=== PATIENT | male | born 1980 | race Two or more races ===

== ENCOUNTER 2018-09-29 22:40 | Emergency (ER) | payer BC ==
[~2018-09-29] VITALS: Ht 170.2 cm; Wt 77.1 kg
--- NOTE | 2018-09-29 23:01 | NUR ---
ED Nurse Note: Patient walked in to ER from home c/o N/V, severe headache since yesterday. Stated that had high fever at home. Patient can not eat. AO4. NAD. VSS
--- NOTE | 2018-09-29 23:05 | NUR ---
ED Nurse Note: IV ACCESS ESTABLISHED. BLOOD AND URINE COLLECTED; SENT DOWN TO LAB.
[2018-09-29 23:19] VITALS: BP 138/86
[2018-09-29 23:20] LABS: BASOPHILS % (AUTO) 0.7 % (0.0-2.0); BILIRUBIN, URINE NEGATIVE (NEGATIVE); EOSINOPHILS % (AUTO) 0.9 % (0.0-3.0); GLUCOSE, URINE (UA) NEGATIVE (NEGATIVE); HEMATOCRIT 51.8 % (42.0-52.0); KETONES,URINE 3+ (NEGATIVE); LEUKOCYTE ESTERASE ,URINE 2+ (NEGATIVE); LYMPHOCYTES % (AUTO) 10.1 % (20.0-45.0); MEAN CORPUSCULAR VOLUME 87 FL (80-99); MONOCYTES % (AUTO) 7.1 % (1.0-10.0); NEUTROPHILS % (AUTO) 81.2 % (45.0-75.0); NITRITE,URINE NEGATIVE (NEGATIVE); PH,URINE 6 (4.5-8.0); PLATELET COUNT 191 K/UL (150-450); PROTEIN,URINE 2+ (NEGATIVE); RED BLOOD COUNT 5.98 M/UL (4.70-6.10); RED CELL DISTRIBUTION WIDTH 10.6 % (11.6-14.8); UROBILINOGEN,URINE 4 MG/DL (0.0-1.0); WHITE BLOOD COUNT 17.8 K/UL (4.8-10.8)
[2018-09-29 23:22] LABS: HEMOGLOBIN 18.6 G/DL (14.2-18.0)
[2018-09-29 23:24] LABS: COLOR,URINE YELLOW
[2018-09-29 23:30] LABS: APPEARANCE,URINE SLIGHTLY CLOUDY
[2018-09-29 23:31] LABS: ANION GAP 12 mmol/L (5-15); BLOOD UREA NITROGEN 17 mg/dL (7-18); CALCIUM 9.6 MG/DL (8.5-10.1); CARBON DIOXIDE 24 MMOL/L (21-32); CHLORIDE 100 MMOL/L (98-107); POTASSIUM 3.5 MMOL/L (3.5-5.1); SODIUM 136 MMOL/L (136-145)
[2018-09-29 23:42] LABS: ALANINE AMINOTRANSFERASE 46 U/L (12-78); ALBUMIN 4.3 G/DL (3.4-5.0); ALKALINE PHOSPHATASE 59 U/L (46-116); ASPARTATE AMINO TRANSFERASE 18 U/L (15-37)
[2018-09-30] MEDS ORDERED: LORazepam Inj 2mg/ml 1ml IV ONE
[2018-09-30] MEDS ORDERED: cefTRIAXone 1 GM in NS 55 ML IVPB ONE (00:15)
[2018-09-30] MEDS ORDERED: CEPHALEXIN500 MG ORAL (00:55)
[2018-09-30 01:14] VITALS: BP 138/86
--- NOTE | 2018-09-30 01:15 | NUR ---
ER DISCHARGE NOTE: Patient is cleared to be discharged per ERMD, pt is aox4, on room air, with stable vital signs. pt was given dc and prescription instructions, pt was able to verbalize understanding, pt id band and iv site removed without complications. pt is able to ambulate with steady gait. pt took all belongings.
--- NOTE | 2018-09-30 01:37 | Emergency Room Report ---
History of Present Illness General Chief Complaint: Nausea, Vomiting, and Diarrhea Source: Patient Present Illness HPI Patient is a 37-year-old male presented after increased fever and chills. Patient reports having increased nausea and vomiting. He states he had been well earlier in the day. He denies any recent chemical exposures. 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 He reports having some prior history of prostate disease. He reports being a intermittent smoker. He denies any chest discomfort or shortness of breath. Allergies: Coded Allergies: No Known Allergies (Unverified , 09/29/18) Patient History Past Medical History: see triage record Reviewed Nursing Documentation: PMH: Agreed; PSxH: Agreed Nursing Documentation-PMH Past Medical History: No Stated History Review of Systems All Other Systems: negative except mentioned in HPI Physical Exam Vital Signs Date Time Temp Pulse Resp B/P (MAP) Pulse Ox O2 Delivery O2 Flow Rate FiO2 09/29/18 22:54 99.5 96 18 147/91 (109) 96 Room Air Sp02 EP Interpretation: reviewed, normal General Appearance: normal inspection, well appearing, no apparent distress, alert, GCS 15 Head: atraumatic ENT: normal ENT inspection, hearing grossly normal, normal voice Neck: normal inspection, full range of motion, supple, no bony tend Respiratory: normal inspection, lungs clear, normal breath sounds, no respiratory distress, no retraction, no wheezing Cardiovascular #1: no edema, tachycardia Gastrointestinal: normal inspection, normal bowel sounds, non tender, soft, no guarding, no hernia Genitourinary: no CVA tenderness Musculoskeletal: normal inspection, back normal, normal range of motion Neurologic: normal inspection, alert, oriented x3, responsive, oyster grader III-XII nml as tested, speech normal Psychiatric: normal inspection, judgement/insight normal, mood/affect normal Medical Decision Making Diagnostic Impression: Primary Impression: Dehydration Additional Impression: Urinary tract infection ER Course Presented for increased fever and chills. Differential diagnosis include was not limited to urinary tract infection, pneumonia, substance abuse among others. Because of complexity of patient's case laboratory testing and imaging studies were ordered. Patient was noted to be somewhat sweaty no acute distress. He does not appear to have any respiratory difficulty. Laboratory studies were ordered due to patient's concerning history. Patient was started on IV fluids. He was given IV antibiotics after urinalysis showed some evidence of urinary infection. Urine drug screen was also noted to be positive for cocaine as well as marijuana. EKG interpreted by me showed normal sinus rhythm with a rate of [address] or T wave changes. Patient was given IV fluids and stated that he felt much better. Patient appeared to be stable for discharge. He was given prescription for oral antibiotics. He is advised to return if worse. Labs Test 09/29/18 23:05 White Blood Count 17.8 K/UL (4.8-10.8) Red Blood Count 5.98 M/UL (4.70-6.10) Hemoglobin 18.6 G/DL (14.2-18.0) Hematocrit 51.8 % (42.0-52.0) Mean Corpuscular Volume 87 FL (80-99) Mean Corpuscular Hemoglobin 31.1 PG (27.0-31.0) Mean Corpuscular Hemoglobin Concent 35.9 G/DL (32.0-36.0) Red Cell Distribution Width 10.6 % (11.6-14.8) Platelet Count 191 K/UL (150-450) Mean Platelet Volume 8.6 FL (6.5-10.1) Neutrophils (%) (Auto) 81.2 % (45.0-75.0) Lymphocytes (%) (Auto) 10.1 % (20.0-45.0) Monocytes (%) (Auto) 7.1 % (1.0-10.0) Eosinophils (%) (Auto) 0.9 % (0.0-3.0) Basophils (%) (Auto) 0.7 % (0.0-2.0) Urine Color Yellow Urine Appearance Slightly cloudy Urine pH 6 (4.5-8.0) Urine Specific [place] 1.025 (1.005-1.035) Urine Protein 2+ (NEGATIVE) Urine Glucose (UA) Negative (NEGATIVE) Urine Ketones 3+ (NEGATIVE) Urine Blood 3+ (NEGATIVE) Urine Nitrite Negative (NEGATIVE) Urine Bilirubin Negative (NEGATIVE) Urine Urobilinogen 4 MG/DL (0.0-1.0) Urine Leukocyte Esterase 2+ (NEGATIVE) Urine RBC 5-10 /HPF (0 - 0) Urine WBC 15-20 /HPF (0 - 0) Urine Squamous Epithelial Cells None /LPF (NONE/OCC) Urine Calcium Oxalate Crystals Few /LPF (NONE) Urine Bacteria Moderate /HPF (NONE) Urine Mucus Moderate /LPF (NONE/OCC) Sodium Level 136 MMOL/L (136-145) Potassium Level 3.5 MMOL/L (3.5-5.1) Chloride Level 100 MMOL/L (98-107) Carbon Dioxide Level 24 MMOL/L (21-32) Anion Gap 12 mmol/L (5-15) Blood Urea Nitrogen 17 mg/dL (7-18) Creatinine 1.0 MG/DL (0.55-1.30) Estimat Glomerular Filtration Rate > 60 mL/min (>60) Glucose Level 119 MG/DL (74-106) Calcium Level 9.6 MG/DL (8.5-10.1) Total Bilirubin 1.0 MG/DL (0.2-1.0) Aspartate Amino Transf (AST/SGOT) 18 U/L (15-37) Alanine Aminotransferase (ALT/SGPT) 46 U/L (12-78) Alkaline Phosphatase 59 U/L (46-116) Troponin I 0.000 ng/mL (0.000-0.056) Total Protein 8.5 G/DL (6.4-8.2) Albumin 4.3 G/DL (3.4-5.0) Globulin 4.2 g/dL Albumin/Globulin Ratio 1.0 (1.0-2.7) Lipase 100 U/L (73-393) Thyroid Stimulating Hormone (TSH) 1.032 uiU/mL (0.358-3.740) Urine Opiates Screen Negative (NEGATIVE) Urine Barbiturates Screen Negative (NEGATIVE) Phencyclidine (PCP) Screen Negative (NEGATIVE) Urine Amphetamines Screen Negative (NEGATIVE) Urine Benzodiazepines Screen Negative (NEGATIVE) Urine Cocaine Screen Positive (NEGATIVE) Urine Marijuana (THC) Screen Positive (NEGATIVE) EKG Diagnostic Results Rate: normal Rhythm: NSR ST Segments: no acute changes Last Vital Signs Date Time Temp Pulse Resp B/P (MAP) Pulse Ox O2 Delivery O2 Flow Rate FiO2 09/30/18 01:14 99.5 86 18 138/86 96 Room Air Status: improved Disposition: HOME, SELF-CARE Condition: Stable Scripts Cephalexin* (KEFLEX*) 500 Mg Capsule 500 MG ORAL EVERY 6 HOURS, #28 CAP Prov: Heron Contreras MD 09/30/18 Patient Instructions: Dehydration, Adult Heron Contreras MD Sep 30, 2018 01:37
[2018-09-30] MEDS ORDERED: NKM (13:14)
[2018-09-30] MEDS ORDERED: TYLENOL EXTRA500 MG ORAL (15:22)
[2018-09-30] MEDS ORDERED: ZOFRAN4 M1 SL (15:22)
== END 2018-09-30 01:15 | disposition home or self-care (01) ==
LOC: EMR 23:10
DX: E86.0 Dehydration (principal); N39.0 Urinary tract infection, site not specified; R50.9 Fever, unspecified; R11.2 Nausea with vomiting, unspecified; F17.200 Nicotine dependence, unspecified, uncomplicated; F14.90 Cocaine use, unspecified, uncomplicated; F12.90 Cannabis use, unspecified, uncomplicated
CPT/HCPCS: 36415; 80053; 80307; 81001; 83690; 84443; 84484; 85025; 87086; 93005; 96361; 96365; 96375; 99284; J0696

== ENCOUNTER 2018-09-30 13:03 | Emergency (ER) | payer BC ==
[~2018-09-30] VITALS: Ht 170.2 cm; Wt 77.1 kg
[~2018-09-30 13:03] MED LIST: CEPHALEXIN500 MG ORAL
[2018-09-30] MEDS ORDERED: NKM (13:14)
[2018-09-30] MEDS ORDERED: Ketorolac 30mg Inj IV ONE (13:30)
[2018-09-30] MEDS ORDERED: Lidocaine 1% MPF 10mg/ml 5ml INJ ONE (13:30)
--- NOTE | 2018-09-30 14:20 | NUR ---
ED Nurse Note: pt medicated as ordered. pt able to tolerate well. will continue to monitor.
--- NOTE | 2018-09-30 14:35 | NUR ---
ED Nurse Note: kermit padilla done pt walked in c/o of headache.
--- NOTE | 2018-09-30 15:21 | Emergency Room Report ---
History of Present Illness General Chief Complaint: Headache Source: Patient Present Illness HPI 37-year-old female with no significant past medical history here complaining of multiple bouts of emesis and feeling dehydrated x1 day. Patient was seen here at [facility] 1 day ago and was diagnosed with dehydration and a urinary tract infection. Blood work and urine were done on patient. Patient was discharged with Keflex and advised to increase oral hydration. Patient also was positive for cocaine in his toxicology. Patient reports that he has been unable to take any of his medication as he has had multiple bouts of emesis and feeling nauseated. Has not had any oral hydration rating the headache 10 out of 10 without radiation denies any head injury. Denies tingling or numbness. Patient is requesting IV hydration. Patient is here with his . Denies chest pain, shortness of breath, palpitation, urinary frequency and dysuria. Allergies: Coded Allergies: No Known Allergies (Unverified , 09/29/18) Patient History Past Medical History: see triage record Past Surgical History: unable to obtain Pertinent Family History: none Immunizations: UTD Reviewed Nursing Documentation: PMH: Agreed; PSxH: Agreed Nursing Documentation-PMH Past Medical History: No Stated History Review of Systems All Other Systems: negative except mentioned in HPI Physical Exam Vital Signs Date Time Temp Pulse Resp B/P (MAP) Pulse Ox O2 Delivery O2 Flow Rate FiO2 09/30/18 13:10 99.7 97 18 123/80 (94) 96 Room Air Sp02 EP Interpretation: reviewed, normal General Appearance: alert, GCS 15, non-toxic, mild distress Head: normocephalic, atraumatic Eyes: bilateral eye normal inspection, bilateral eye PERRL ENT: hearing grossly normal, normal pharynx, no angioedema, normal voice Neck: full range of motion, supple/symm/no masses Respiratory: chest non-tender, lungs clear, normal breath sounds, speaking full sentences Cardiovascular #1: regular rate, rhythm, no edema, no murmur Gastrointestinal: normal bowel sounds, non tender, soft, non-distended, no guarding, no rebound Genitourinary: no CVA tenderness Musculoskeletal: normal inspection, back normal, digits/nails normal, gait/ station normal Neurologic: normal inspection, alert, oriented x3 Psychiatric: normal inspection, judgement/insight normal, memory normal Skin: no rash Lymphatic: no adenopathy Medical Decision Making PA Attestation All diagnoses and treatment plans were reviewed and discussed with my supervising physician Dr. Borja Diagnostic Impression: Primary Impression: Dehydration Additional Impressions: Nausea UTI (urinary tract infection) Headache ER Course 37-year-old female with no significant past medical history here complaining of multiple bouts of emesis and feeling dehydrated x1 day. Patient was seen here at [facility] 1 day ago and was diagnosed with dehydration and a urinary tract infection. Blood work and urine were done on patient. Patient was discharged with Keflex and advised to increase oral hydration. Patient also was positive for cocaine in his toxicology. Patient reports that he has been unable to take any of his medication as he has had multiple bouts of emesis and feeling nauseated. Has not had any oral hydration rating the headache 10 out of 10 without radiation denies any head injury. Denies tingling or numbness. Patient is requesting IV hydration. Patient is here with his . Denies chest pain, shortness of breath, palpitation, urinary frequency and dysuria. Ddx considered but are not limited to: UTI, pyelonephritis, urinary incontinence , prolapsed bladder, tension headache, dehydration, cocaine abuse Vital signs: are WNL, pt. is afebrile H&PE are most consistent with: UTI, headache, dehydration nausea ORDERS: Zofran sublingual ED INTERVENTIONS: NS bolus, Zofran, Pepcid, Toradol, ceftriaxone DISCHARGE: At this time pt. is stable for d/c to home. Will provide printed patient care instructions, and any necessary prescriptions. Care plan and follow up instructions have been discussed with the patient prior to discharge. Patient to follow-up with a primary care provider take medication as directed increase oral hydration I discussed with patient that cocaine use contributes to his symptoms. At first he did not want his drug use to be discussed in front of his . However his insisted to know the cause of his symptoms. Patient later came out of the room and gave permission to discuss his cocaine use with his . Dr. Todd witnessed patient giving permission to me in order to discuss cocaine use. No further blood work testing is needed as patient was just seen at [facility] yesterday and extensive blood work was done. Last Vital Signs Date Time Temp Pulse Resp B/P (MAP) Pulse Ox O2 Delivery O2 Flow Rate FiO2 09/30/18 13:10 99.7 97 18 123/80 (94) 96 Room Air Disposition: HOME, SELF-CARE Condition: Stable Scripts Acetaminophen* (TYLENOL EXTRA STRENGTH*) 500 Mg Tablet 500 MG ORAL Q8H PRN for Prn Headache/Temp > 101, #30 TAB 0 Refills Prov: Alex Frank 09/30/18 Ondansetron (Zofran) 4 Mg Tablet 4 MG SL Q6H PRN for Nausea & Vomiting, #10 TAB Prov: Alex Frank 09/30/18 Referrals: NOT CHOSEN IPA/,REFERRING (PCP) Patient Instructions: Dehydration, Adult, [id number], General Headache Without Cause, Nausea, Adult, [id number] Additional Instructions: Take medication as directed follow-up with your primary care provider increase oral hydration Alex Frank Sep 30, 2018 15:21
[2018-09-30] MEDS ORDERED: TYLENOL EXTRA500 MG ORAL (15:22)
[2018-09-30] MEDS ORDERED: ZOFRAN4 M1 SL (15:22)
[2018-09-30 16:02] VITALS: BP 125/80
[2018-09-30 16:05] VITALS: BP 125/80
--- NOTE | 2018-09-30 16:07 | NUR ---
ED Nurse Note: ER DISCHARGE NOTE: Patient is cleared to be discharged per ERMD, pt is aox4, on room air, with stable vital signs. pt was given dc and prescription instructions, pt was able to verbalize understanding, pt id band and iv site removed without complications. pt is able to ambulate with steady gait. pt took all belongings.
== END 2018-09-30 16:00 | disposition home or self-care (01) ==
LOC: EMR 13:45
DX: E86.0 Dehydration (principal); R11.0 Nausea; N39.0 Urinary tract infection, site not specified; R51 Headache
CPT/HCPCS: 96361; 96372; 96374; 96375; 99284; J0696; J1885; J2405; S0028